=== PATIENT | female | born 1985 | race Caucasian/White ===

== ENCOUNTER 2021-03-06 15:33 | Inpatient (IN) | payer OTHER ==
--- NOTE | 2021-03-06 15:54 | PCM.LDHP ---
L&D History of Present Illness - General Date of Service: 03/06/21 Admit Problem/Dx: Admission Diagnosis/Problem Admission Diagnosis/Problem Source of Information: Patient History Limitations: Reports: No Limitations - History of Present Illness Introduction:: Patient is a 36 y/o at 30 5/7 wks who presents with PPROM. Patient with baby with congenital diaphragmatic hernia, VSD, severe IUGR and chromosomal abnormality. Had been following with [facility] and today at appointment in [place] noted wetness that started at about 0430. Amnisure done and positive. Given plans for palliative care did return to [place] . Doing well currently. Only notes some mild cramping. 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 Para: 0 LMP (Approximate): - Past Surgical History HEENT Surgical History: Reports: Oral Surgery, Tonsillectomy GI Surgical History: Reports: Colonoscopy Social & Family History - Tobacco Use Tobacco Use Status *Q: Never Tobacco User - Alcohol Use Alcohol Use History: No - Recreational Drug Use Recreational Drug Use: No H&P Review of Systems - Review of Systems: Review Of Systems: See Below General: Reports: No Symptoms Pulmonary: Reports: No Symptoms Cardiovascular: Reports: No Symptoms Gastrointestinal: Reports: No Symptoms Genitourinary: Reports: No Symptoms Musculoskeletal: Reports: No Symptoms Skin: Reports: No Symptoms Neurological: Reports: No Symptoms L&D Exam - Exam Exam: See Below - OB Specific Contraction Intensity: Irritability Heart Tones: Present Heart Tones per Min: 125 Presentation: Vertex - Donald Score Donald Score Cervix Position: Midposition Donald Score Consistency: Medium Donald Score Effacement: 31-50% Donald Score Dilation: 1-2 cm Donald Score 's Station: -2 Donald Score Total: 5 - Exam General: Alert, Oriented, Cooperative Lungs: Clear to Auscultation, Normal Respiratory Effort Cardiovascular: Regular Rate, Regular Rhythm GI/Abdominal Exam: Soft, Non-Tender Genitourinary: Normal external exam Extremities: Normal Inspection Skin: Warm, Dry, Intact - Patient Data Result Diagrams: 03/06/21 16:25 - Problem List (1) 30 weeks gestation of SNOMED Code(s): 90003259 ICD Code: Z3A.30 - 30 WEEKS GESTATION OF Status: Acute Current Visit: Yes (2) premature rupture of membranes (PPROM) with unknown onset of labor SNOMED Code(s): 55605297572041917 ICD Code: O42.919 - PRETRM ZACH ROM, UNSP TIME BETW RUPT AND ONST LABR, UNSP TRI Status: Acute Current Visit: Yes (3) Diaphragmatic hernia, , affecting care of mother, antepartum SNOMED Code(s): 081857938, 976649090, 305684534 ICD Code: O35.8XX0 - MATERNAL CARE FOR OTH ABNORMALITY AND DAMAGE, UNSP Status: Acute Current Visit: Yes (4) cardiac anomaly affecting , antepartum SNOMED Code(s): 888597091, 765417436, 174904081 ICD Code: O35.8XX0 - MATERNAL CARE FOR OTH ABNORMALITY AND DAMAGE, UNSP Status: Acute Current Visit: Yes (5) growth restriction SNOMED Code(s): 58343124 ICD Code: [id number] - Status: Acute Current Visit: Yes Problem List Initiated/Reviewed/Updated: Yes Assessment/Plan Comment:: * Labs done * GBS unknown -do not plan antibiotics * Significant anomalies including IUGR. Previously reviewed patient wishes and did again. Will plan for rare doppler assessment of FHR. Reviewed possibility of baby passing in labor. Reviewed cares for baby after delivery. Peds aware of anomalies * Cytotec to start IOL given fair amount of cervical thickness. Pitocin when able * Pain control per patient preference * Anticipate
[2021-03-06] MEDS ORDERED: Famotidine 20 MG Tab PO PRN (15:55)
[2021-03-06] MEDS ORDERED: Ondansetron 4 MG/2 ML SDV IVPUSH PRN (15:55)
[2021-03-06] MEDS ORDERED: Nalbuphine 10 MG/1 ML Vial IVPUSH PRN (15:55)
[2021-03-06] MEDS ORDERED: Sodium Chloride 0.9% 10 ML Syringe FLUSH PRN (15:55)
[2021-03-06] MEDS ORDERED: Oxytocin/Lactated Ringers 10 UNIT/1,000 ML BAG IV SCH (16:00)
[2021-03-06] MEDS ORDERED: Misoprostol 25 MCG (1/4 of 100 MCG) Tab ONE (16:34)
[2021-03-06] MEDS: Misoprostol 25 MCG (1/4 of 100 MCG) Tab VAG PRN ×2 (16:51→21:21)
[2021-03-06] MEDS: Sodium Chloride 0.9% 10 ML Syringe FLUSH SCH (21:32)
[2021-03-07] MEDS: Misoprostol 25 MCG (1/4 of 100 MCG) Tab VAG PRN (01:42)
[2021-03-07] MEDS ORDERED: Oxytocin/Lactated Ringers 10 UNIT/1,000 ML BAG IV SCH (05:45)
[2021-03-07] MEDS: Lactated Ringers 1,000 ML IV SCH ×3 (05:57→17:43)
--- NOTE | 2021-03-07 07:03 | PCM.PNLD ---
Labor Progress Note - VS & Meds Vital Signs: Last Vital Signs Temp 37.1 C 03/06/21 16:00 Pulse 81 03/06/21 16:00 Resp 16 03/06/21 16:00 BP 118/77 03/06/21 16:00 Pulse Ox 98 03/06/21 16:00 Active Medications: Current Medications Acetaminophen (Acetaminophen 325 Mg Tab) 650 mg PO Q4H PRN PRN Reason: Pain (Mild 1-3) and fever Famotidine (Famotidine 20 Mg Tab) 20 mg PO Q12H PRN PRN Reason: Heartburn Oxytocin/Lactated Ringer's (Pitocin In Lr 10 Units/1,000 Ml) 10 unit in 1,000 mls @ 500 mls/hr IV .CONTINUOUS LUC Lactated Ringer's (Ringers, Lactated) 1,000 mls @ 100 mls/hr IV ASDIRECTED LUC Last Admin: 03/07/21 05:57 Dose: 100 mls/hr Documented by: Oxytocin/Lactated Ringer's (Pitocin In Lr 10 Units/1,000 Ml) 10 unit in 1,000 mls @ 12 mls/hr IV TITRATE LUC; Protocol Last Admin: 03/07/21 05:57 Dose: 2 munits/min, 12 mls/hr Documented by: Misoprostol (Misoprostol 25 Mcg (1/4 Of 100 Mcg) Tab) 25 mcg VAG Q4H PRN PRN Reason: cervical ripening Last Admin: 03/07/21 01:42 Dose: 25 mcg Documented by: Nalbuphine HCl (Nalbuphine 10 Mg/1 Ml Vial) 10 mg IVPUSH Q2H PRN PRN Reason: Pain Ondansetron HCl (Ondansetron 4 Mg/2 Ml Sdv) 4 mg IVPUSH Q4H PRN PRN Reason: Nausea/Vomiting Sodium Chloride (Sodium Chloride 0.9% 10 Ml Syringe) 10 ml FLUSH 0900,2100 [facility] Last Admin: 03/06/21 21:32 Dose: Not Given Documented by: Sodium Chloride (Sodium Chloride 0.9% 10 Ml Syringe) 10 ml FLUSH ASDIRECTED PRN PRN Reason: Keep Vein Open Discontinued Medications Misoprostol (Misoprostol 25 Mcg (1/4 Of 100 Mcg) Tab) Confirm Administered Dose 25 mcg .ROUTE .STK-MED ONE Stop: 03/06/21 16:35 Last Admin: 03/06/21 16:39 Dose: Not Given Documented by: - Uterine Contractions Uterine Monitoring Mode: External [place] Contraction Intensity: Mild Uterine Resting Tone: Soft - Monitoring Monitor Mode: Doppler/Auscultation Heart Rate (FHR) Baseline: 125 - Vaginal Exam Dilation (cm): 1-2 - Labor Progress (Free Text) Labor Progress: Doing well. Received 3 doses of Cytotec. Started pitocin at about 0500. Doing well. Cook balloon just placed. Continue to increase per protocol
--- NOTE | 2021-03-07 08:25 | PCM.PREANE ---
Preanesthetic Assessment - Procedure Proposed Procedure: Labor epidural - Anesthesia/Transfusion/Family Hx Anesthesia History: Prior Anesthesia Without Reaction Family History of Anesthesia Reaction: No Transfusion History: No Prior Transfusion(s) Intubation History: Unknown - Review of Systems General: No Symptoms Pulmonary: No Symptoms Cardiovascular: No Symptoms Gastrointestinal: Abdominal Pain (uterine contractions), Nausea, Vomiting Neurological: Headache - Physical Assessment NPO Status Date: 03/06/21 NPO Status Time: 20:00 Vital Signs: Last Vital Signs Temp 98.8 F 03/06/21 16:00 Pulse 81 03/06/21 16:00 Resp 16 03/06/21 16:00 BP 118/77 03/06/21 16:00 Pulse Ox 98 03/06/21 16:00 Height: 1.73 m Weight: 109.452 kg ASA Class: 2 Mental Status: Alert & Oriented x3 Airway Class: Mallampati = 2 Dentition: Reports: Caries Thyro-Mental Finger Breadths: 3 Mouth Opening Finger Breadths: 3 ROM/Head Extension: Full Lungs: Clear to Auscultation, Normal Respiratory Effort Cardiovascular: Regular Rate, Regular Rhythm - Lab Values: Laboratory Last Values WBC 11.56 K/mm3 (3.98-10.04) H 03/06/21 16:25 RBC 4.09 M/mm3 (3.98-5.22) 03/06/21 16:25 Hgb 11.8 gm/dl (11.2-15.7) 03/06/21 16:25 Hct 35.3 % (34.1-44.9) 03/06/21 16:25 MCV 86.3 fl (79.4-94.8) 03/06/21 16:25 MCH 28.9 pg (25.6-32.2) 03/06/21 16:25 MCHC 33.4 g/dl (32.2-35.5) 03/06/21 16:25 RDW Std Deviation 40.8 fL (36.4-46.3) 03/06/21 16:25 Plt Count 257 K/mm3 (182-369) 03/06/21 16:25 MPV 10.2 fl (9.4-12.3) 03/06/21 16:25 RPR Non-reactive (NONREACTIVE) 03/06/21 16:25 SARS-CoV-2 RNA (ASHKAN) Negative (NEGATIVE) 03/06/21 14:08 Blood Type A POSITIVE 03/06/21 16:25 Gel Antibody Screen Negative 03/06/21 16:25 - Allergies Allergies/Adverse Reactions: Allergies Allergy/AdvReac Type Severity Reaction Status Date / Time No Known Allergies Allergy Verified 03/06/21 15:50 - Acknowledgements Anesthesia Type Planned: Epidural Pt an Appropriate Candidate for the Planned Anesthesia: Yes Alternatives and Risks of Anesthesia Discussed w Pt/Guardian: Yes Pt/Guardian Understands and Agrees with Anesthesia Plan: Yes PreAnesthesia Questionnaire HEENT History: Reports: Hard of Hearing Cardiovascular History: Reports: None Respiratory History: Reports: None Gastrointestinal History: Reports: GERD, Irritable Bowel Syndrome Other Genitourinary History: BRCA gene 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 OB/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 History: hx of abnormal pap Musculoskeletal History: Reports: None Neurological History: Reports: Migraines Psychiatric History: Reports: Anxiety Endocrine/Metabolic History: Reports: Obesity/BMI 30+ Hematologic History: Reports: None Immunologic History: Reports: None Oncologic (Cancer) History: Reports: None Dermatologic History: Reports: None - Infectious Disease History Infectious Disease History: Reports: Chicken Pox - Past Surgical History HEENT Surgical History: Reports: Oral Surgery, Tonsillectomy Other HEENT Surgeries/Procedures: [place] teeth GI Surgical History: Reports: Colonoscopy, EGD - SUBSTANCE USE Tobacco Use Status *Q: Never Tobacco User Tobacco Use Within Last Twelve Months: No Second Hand Smoke Exposure: No Days Per Week of Alcohol Use: 0 Number of Drinks Per Day: 0 Total Drinks Per Week: 0 Recreational Drug Use History: No - HOME MEDS Home Medications: Home Meds Calcium Carbonate [Tums] 1,000 mg PO TID 03/06/21 [History] Magnesium Oxide [Mag-Oxide] 400 mg PO DAILY 03/06/21 [History] Pnv No.95/Ferrous Fum/Folic AC [ Vitamin Tablet] 1 tab PO DAILY 03/06/21 [History] - CURRENT (IN HOUSE) MEDS Current Meds: Current Medications Acetaminophen (Acetaminophen 325 Mg Tab) 650 mg PO Q4H PRN PRN Reason: Pain (Mild 1-3) and fever Famotidine (Famotidine 20 Mg Tab) 20 mg PO Q12H PRN PRN Reason: Heartburn Oxytocin/Lactated Ringer's (Pitocin In Lr 10 Units/1,000 Ml) 10 unit in 1,000 mls @ 500 mls/hr IV .CONTINUOUS LUC Lactated Ringer's (Ringers, Lactated) 1,000 mls @ 100 mls/hr IV ASDIRECTED LUC Last Admin: 03/07/21 05:57 Dose: 100 mls/hr Documented by: Oxytocin/Lactated Ringer's (Pitocin In Lr 10 Units/1,000 Ml) 10 unit in 1,000 mls @ 12 mls/hr IV TITRATE LUC; Protocol Last Titration: 03/07/21 07:00 Dose: 4 munits/min, 24 mls/hr Documented by: Misoprostol (Misoprostol 25 Mcg (1/4 Of 100 Mcg) Tab) 25 mcg VAG Q4H PRN PRN Reason: cervical ripening Last Admin: 03/07/21 01:42 Dose: 25 mcg Documented by: Nalbuphine HCl (Nalbuphine 10 Mg/1 Ml Vial) 10 mg IVPUSH Q2H PRN PRN Reason: Pain Ondansetron HCl (Ondansetron 4 Mg/2 Ml Sdv) 4 mg IVPUSH Q4H PRN PRN Reason: Nausea/Vomiting Sodium Chloride (Sodium Chloride 0.9% 10 Ml Syringe) 10 ml FLUSH 0900,2100 [facility] Last Admin: 03/06/21 21:32 Dose: Not Given Documented by: Sodium Chloride (Sodium Chloride 0.9% 10 Ml Syringe) 10 ml FLUSH ASDIRECTED PRN PRN Reason: Keep Vein Open Discontinued Medications Misoprostol (Misoprostol 25 Mcg (1/4 Of 100 Mcg) Tab) Confirm Administered Dose 25 mcg .ROUTE .STK-MED ONE Stop: 03/06/21 16:35 Last Admin: 03/06/21 16:39 Dose: Not Given Documented by:
[2021-03-07] MEDS ORDERED: diphenhydrAMINE 50 MG/ML SDV IVPUSH PRN (08:33)
[2021-03-07] MEDS ORDERED: ePHEDrine 50 MG/ML SDV IVPUSH PRN (08:33)
[2021-03-07] MEDS: fentaNYL 100 MCG/2 ML SDV EPIDUR PRN (08:41)
[2021-03-07] MEDS: Bupivacaine/fentaNYL/NS 100 ML Bag EPIDUR PRN ×2 (08:43→18:04)
[2021-03-07] MEDS: Acetaminophen 325 MG Tab PO PRN ×2 (13:17→20:10)
[2021-03-07] MEDS ORDERED: Oxytocin/Lactated Ringers 20 UNIT/1,000 ML BAG IV SCH ×2 (16:45→17:15)
--- NOTE | 2021-03-07 17:03 | PCM.PNLD ---
Labor Progress Note - VS & Meds Vital Signs: Last Vital Signs Temp 37.1 C 03/06/21 16:00 Pulse 81 03/06/21 16:00 Resp 16 03/06/21 16:00 BP 118/77 03/06/21 16:00 Pulse Ox 98 03/06/21 16:00 Active Medications: Current Medications Acetaminophen (Acetaminophen 325 Mg Tab) 650 mg PO Q4H PRN PRN Reason: Pain (Mild 1-3) and fever Last Admin: 03/07/21 13:17 Dose: 650 mg Documented by: Diphenhydramine HCl (Diphenhydramine 50 Mg/Ml Sdv) 25 mg IVPUSH Q6H PRN PRN Reason: pruritis Ephedrine Sulfate (Ephedrine 50 Mg/Ml Sdv) 5 mg IVPUSH ASDIRECTED PRN PRN Reason: Hypotension Famotidine (Famotidine 20 Mg Tab) 20 mg PO Q12H PRN PRN Reason: Heartburn Last Admin: 03/07/21 15:11 Dose: 20 mg Documented by: Fentanyl (Fentanyl 100 Mcg/2 Ml Sdv) 100 mcg EPIDUR Q3H PRN PRN Reason: Pain Last Admin: 03/07/21 08:41 Dose: 100 mcg Documented by: Fentanyl/Bupivacaine HCl (Bupivacaine/Fentanyl/Ns 100 Ml Bag) 100 ml EPIDUR ASDIRECTED PRN PRN Reason: Pain Last Admin: 03/07/21 08:43 Dose: 100 ml Documented by: Oxytocin/Lactated Ringer's (Pitocin In Lr 10 Units/1,000 Ml) 10 unit in 1,000 mls @ 500 mls/hr IV .CONTINUOUS LUC Lactated Ringer's (Ringers, Lactated) 1,000 mls @ 100 mls/hr IV ASDIRECTED LUC Last Admin: 03/07/21 08:29 Dose: 100 mls/hr Documented by: Oxytocin/Lactated Ringer's (Pitocin In Lr 10 Units/1,000 Ml) 10 unit in 1,000 mls @ 12 mls/hr IV TITRATE LUC; Protocol Last Titration: 03/07/21 09:49 Dose: 2 munits/min, 12 mls/hr Documented by: Misoprostol (Misoprostol 25 Mcg (1/4 Of 100 Mcg) Tab) 25 mcg VAG Q4H PRN PRN Reason: cervical ripening Last Admin: 03/07/21 01:42 Dose: 25 mcg Documented by: Nalbuphine HCl (Nalbuphine 10 Mg/1 Ml Vial) 10 mg IVPUSH Q2H PRN PRN Reason: Pain Ondansetron HCl (Ondansetron 4 Mg/2 Ml Sdv) 4 mg IVPUSH Q4H PRN PRN Reason: Nausea/Vomiting Last Admin: 03/07/21 08:21 Dose: 4 mg Documented by: Sodium Chloride (Sodium Chloride 0.9% 10 Ml Syringe) 10 ml FLUSH 0900,2100 [facility] Last Admin: 03/06/21 21:32 Dose: Not Given Documented by: Sodium Chloride (Sodium Chloride 0.9% 10 Ml Syringe) 10 ml FLUSH ASDIRECTED PRN PRN Reason: Keep Vein Open Discontinued Medications Oxytocin 20 unit/ Lactated (Ringer's) 1,002 mls @ 6.012 mls/hr IV TITRATE LUC; Protocol Misoprostol (Misoprostol 25 Mcg (1/4 Of 100 Mcg) Tab) Confirm Administered Dose 25 mcg .ROUTE .STK-MED ONE Stop: 03/06/21 16:35 Last Admin: 03/06/21 16:39 Dose: Not Given Documented by: - Uterine Contractions Uterine Monitoring Mode: External [place] Contraction Intensity: Mild to Moderate Uterine Resting Tone: Soft - Monitoring Monitor Mode: External Ultrasound Heart Rate (FHR) Baseline: 125 - Vaginal Exam Dilation (cm): 4 Effacement (Percent): 70 Station: -2 Cervical Position: Midposition - Labor Progress (Free Text) Labor Progress: Pitocin currently at 20. Bulb able to be successfully extracted. Exam shows small forebag. Ruptured with a small amount of blood tinged fluid. Continue to increase pitocin to 30. FHR still present.
--- NOTE | 2021-03-07 17:04 | PCM.PNLD ---
Labor Progress Note - VS & Meds Vital Signs: Last Vital Signs Temp 37.1 C 03/06/21 16:00 Pulse 81 03/06/21 16:00 Resp 16 03/06/21 16:00 BP 118/77 03/06/21 16:00 Pulse Ox 98 03/06/21 16:00 Active Medications: Current Medications Acetaminophen (Acetaminophen 325 Mg Tab) 650 mg PO Q4H PRN PRN Reason: Pain (Mild 1-3) and fever Last Admin: 03/07/21 13:17 Dose: 650 mg Documented by: Diphenhydramine HCl (Diphenhydramine 50 Mg/Ml Sdv) 25 mg IVPUSH Q6H PRN PRN Reason: pruritis Ephedrine Sulfate (Ephedrine 50 Mg/Ml Sdv) 5 mg IVPUSH ASDIRECTED PRN PRN Reason: Hypotension Famotidine (Famotidine 20 Mg Tab) 20 mg PO Q12H PRN PRN Reason: Heartburn Last Admin: 03/07/21 15:11 Dose: 20 mg Documented by: Fentanyl (Fentanyl 100 Mcg/2 Ml Sdv) 100 mcg EPIDUR Q3H PRN PRN Reason: Pain Last Admin: 03/07/21 08:41 Dose: 100 mcg Documented by: Fentanyl/Bupivacaine HCl (Bupivacaine/Fentanyl/Ns 100 Ml Bag) 100 ml EPIDUR ASDIRECTED PRN PRN Reason: Pain Last Admin: 03/07/21 08:43 Dose: 100 ml Documented by: Oxytocin/Lactated Ringer's (Pitocin In Lr 10 Units/1,000 Ml) 10 unit in 1,000 mls @ 500 mls/hr IV .CONTINUOUS LUC Lactated Ringer's (Ringers, Lactated) 1,000 mls @ 100 mls/hr IV ASDIRECTED LUC Last Admin: 03/07/21 08:29 Dose: 100 mls/hr Documented by: Oxytocin/Lactated Ringer's (Pitocin In Lr 10 Units/1,000 Ml) 10 unit in 1,000 mls @ 12 mls/hr IV TITRATE LUC; Protocol Last Titration: 03/07/21 09:49 Dose: 2 munits/min, 12 mls/hr Documented by: Misoprostol (Misoprostol 25 Mcg (1/4 Of 100 Mcg) Tab) 25 mcg VAG Q4H PRN PRN Reason: cervical ripening Last Admin: 03/07/21 01:42 Dose: 25 mcg Documented by: Nalbuphine HCl (Nalbuphine 10 Mg/1 Ml Vial) 10 mg IVPUSH Q2H PRN PRN Reason: Pain Ondansetron HCl (Ondansetron 4 Mg/2 Ml Sdv) 4 mg IVPUSH Q4H PRN PRN Reason: Nausea/Vomiting Last Admin: 03/07/21 08:21 Dose: 4 mg Documented by: Sodium Chloride (Sodium Chloride 0.9% 10 Ml Syringe) 10 ml FLUSH 0900,2100 [facility] Last Admin: 03/06/21 21:32 Dose: Not Given Documented by: Sodium Chloride (Sodium Chloride 0.9% 10 Ml Syringe) 10 ml FLUSH ASDIRECTED PRN PRN Reason: Keep Vein Open Discontinued Medications Oxytocin 20 unit/ Lactated (Ringer's) 1,002 mls @ 6.012 mls/hr IV TITRATE LUC; Protocol Misoprostol (Misoprostol 25 Mcg (1/4 Of 100 Mcg) Tab) Confirm Administered Dose 25 mcg .ROUTE .STK-MED ONE Stop: 03/06/21 16:35 Last Admin: 03/06/21 16:39 Dose: Not Given Documented by: - Uterine Contractions Uterine Monitoring Mode: External [place] Contraction Intensity: Mild Uterine Resting Tone: Soft - Monitoring Monitor Mode: External Ultrasound Heart Rate (FHR) Baseline: 85 - Labor Progress (Free Text) Labor Progress: Doing well. Comfortable now that epidural in place. Traction placed on bulb and not able to remove. Continue to increase pitocin per protocol. FHR done and thought to be in 80's.
--- NOTE | 2021-03-07 20:13 | PCM.PNLD ---
Labor Progress Note - VS & Meds Vital Signs: Last Vital Signs Temp 37.1 C 03/06/21 16:00 Pulse 81 03/06/21 16:00 Resp 16 03/06/21 16:00 BP 118/77 03/06/21 16:00 Pulse Ox 98 03/06/21 16:00 Active Medications: Current Medications Acetaminophen (Acetaminophen 325 Mg Tab) 650 mg PO Q4H PRN PRN Reason: Pain (Mild 1-3) and fever Last Admin: 03/07/21 13:17 Dose: 650 mg Documented by: Diphenhydramine HCl (Diphenhydramine 50 Mg/Ml Sdv) 25 mg IVPUSH Q6H PRN PRN Reason: pruritis Ephedrine Sulfate (Ephedrine 50 Mg/Ml Sdv) 5 mg IVPUSH ASDIRECTED PRN PRN Reason: Hypotension Famotidine (Famotidine 20 Mg Tab) 20 mg PO Q12H PRN PRN Reason: Heartburn Last Admin: 03/07/21 15:11 Dose: 20 mg Documented by: Fentanyl (Fentanyl 100 Mcg/2 Ml Sdv) 100 mcg EPIDUR Q3H PRN PRN Reason: Pain Last Admin: 03/07/21 08:41 Dose: 100 mcg Documented by: Fentanyl/Bupivacaine HCl (Bupivacaine/Fentanyl/Ns 100 Ml Bag) 100 ml EPIDUR ASDIRECTED PRN PRN Reason: Pain Last Admin: 03/07/21 18:04 Dose: 100 ml Documented by: Oxytocin/Lactated Ringer's (Pitocin In Lr 10 Units/1,000 Ml) 10 unit in 1,000 mls @ 500 mls/hr IV .CONTINUOUS LUC Lactated Ringer's (Ringers, Lactated) 1,000 mls @ 100 mls/hr IV ASDIRECTED LUC Last Admin: 03/07/21 17:43 Dose: 100 mls/hr Documented by: Oxytocin/Lactated Ringer's (Pitocin In Lr 10 Units/1,000 Ml) 10 unit in 1,000 mls @ 12 mls/hr IV TITRATE LUC; Protocol Last Titration: 03/07/21 15:30 Dose: 20 munits/min, 120 mls/hr Documented by: Oxytocin/Lactated Ringer's (Pitocin In Lr 20 Units/1,000 Ml) 20 unit in 1,000 mls @ 60 mls/hr IV TITRATE LUC; Protocol Last Admin: 03/07/21 17:40 Dose: 60 mls/hr Documented by: Nalbuphine HCl (Nalbuphine 10 Mg/1 Ml Vial) 10 mg IVPUSH Q2H PRN PRN Reason: Pain Ondansetron HCl (Ondansetron 4 Mg/2 Ml Sdv) 4 mg IVPUSH Q4H PRN PRN Reason: Nausea/Vomiting Last Admin: 03/07/21 08:21 Dose: 4 mg Documented by: Sodium Chloride (Sodium Chloride 0.9% 10 Ml Syringe) 10 ml FLUSH 0900,2100 L[facility] Last Admin: 03/06/21 21:32 Dose: Not Given Documented by: Sodium Chloride (Sodium Chloride 0.9% 10 Ml Syringe) 10 ml FLUSH ASDIRECTED PRN PRN Reason: Keep Vein Open Discontinued Medications Oxytocin 20 unit/ Lactated (Ringer's) 1,002 mls @ 6.012 mls/hr IV TITRATE LUC; Protocol Oxytocin/Lactated Ringer's (Pitocin In Lr 20 Units/1,000 Ml) 20 unit in 1,000 mls @ 60 mls/hr IV TITRATE LUC; Protocol Misoprostol (Misoprostol 25 Mcg (1/4 Of 100 Mcg) Tab) 25 mcg VAG Q4H PRN PRN Reason: cervical ripening Last Admin: 03/07/21 01:42 Dose: 25 mcg Documented by: Misoprostol (Misoprostol 25 Mcg (1/4 Of 100 Mcg) Tab) Confirm Administered Dose 25 mcg .ROUTE .STK-MED ONE Stop: 03/06/21 16:35 Last Admin: 03/06/21 16:39 Dose: Not Given Documented by: - Uterine Contractions Uterine Monitoring Mode: External [place] Contraction Intensity: Mild to Moderate Uterine Resting Tone: Soft - Monitoring Monitor Mode: External Ultrasound Heart Rate (FHR) Baseline: 190 - Vaginal Exam Dilation (cm): 4-5 Effacement (Percent): 70 Station: -1 Cervical Position: Anterior - Labor Progress (Free Text) Labor Progress: Pitocin at 24. Just had another large forebag rupture of clear fluid. IUPC placed. Will plan to increase to 30 and leave at that for several hours and then recheck. If no change discussed wash out and restart of pitocin. She agrees.
[2021-03-07] MEDS: Sodium Chloride 0.9% 10 ML Syringe FLUSH SCH ×2 (20:33→21:46)
[2021-03-08] MEDS: fentaNYL 100 MCG/2 ML SDV EPIDUR PRN (02:14)
--- NOTE | 2021-03-08 03:35 | PCM.DEL ---
L & D Note - General Info Date of Service: 03/08/21 - Delivery Note Labor: Augmented by Oxytocin Cervical Ripening Method: Balloon Device, Misoprostil Delivery Outcome: Livebirth Infant Delivery Method: Spontaneous Vaginal Delivery-Single Delivery Mode: Spontaneous Presentation: Vertex Nuchal Cord: None Anesthesia Type: Epidural Amniotic Fluid Description: Clear Episiotomy Type: None Laceration: None Placenta: Intact, Spontaneous Cord: 3 Vessels Estimated Blood Loss: 50 Resuscitation Needed: No Delivery Comments (Free Text/Narrative):: Patient found to be complete. Delivered with maternal pushing effort from a vertex presentation. Baby girl placed on mom's chest. RN able to hear FHR <100. Cord clamped and dad able to cut cord. Cord blood obtained. Placenta allowed time to separate and expelled intact. Inspection of perineum with no lacerations. Allowed family time to hold daughter. Next check of FHR at 0339 showed it to be absent. Time of noted. - General Info Date of Service: 03/08/21 - Patient Data Vitals - Most Recent: Last Vital Signs Temp 37.1 C 03/06/21 16:00 Pulse 81 03/06/21 16:00 Resp 16 03/06/21 16:00 BP 118/77 03/06/21 16:00 Pulse Ox 98 03/06/21 16:00 Weight - Most Recent: 109.452 kg I&O - Last 24 Hours: Intake & Output 03/07/21 03/07/21 03/08/21 14:59 22:59 06:59 Intake Total 1000 Output Total 1300 1500 Balance 1000 -1300 -1500 - Exam Urinary Catheter Total Time: 0Days 0Hours - Problem List & Annotations (1) 30 weeks gestation of SNOMED Code(s): 35323741 Code(s): Z3A.30 - 30 WEEKS GESTATION OF Status: Acute Current Visit: Yes (2) premature rupture of membranes (PPROM) with unknown onset of labor SNOMED Code(s): 45754140916262072 Code(s): O42.919 - PRETRM ZACH ROM, UNSP TIME BETW RUPT AND ONST LABR, UNSP TRI Status: Acute Current Visit: Yes (3) Diaphragmatic hernia, , affecting care of mother, antepartum SNOMED Code(s): 518176015, 332518666, 467254756 Code(s): O35.8XX0 - MATERNAL CARE FOR OTH ABNORMALITY AND DAMAGE, UNSP Status: Acute Current Visit: Yes (4) cardiac anomaly affecting , antepartum SNOMED Code(s): 798247039, 426622453, 240207433 Code(s): O35.8XX0 - MATERNAL CARE FOR OTH ABNORMALITY AND DAMAGE, UNSP Status: Acute Current Visit: Yes (5) growth restriction SNOMED Code(s): 42371415 Code(s): PTF6400 - Status: Acute Current Visit: Yes (6) Vaginal delivery SNOMED Code(s): 761546064 Code(s): O80 - ENCOUNTER FOR FULL-TERM UNCOMPLICATED DELIVERY Status: Acute Current Visit: Yes - Problem List Review Problem List Initiated/Reviewed/Updated: Yes - My Orders Last 24 Hours: My Active Orders 03/07/21 05:45 Oxytocin/Lactated Ringers [Pitocin in LR 10 Units/1,000 ML] 10 unit in 1,000 ml IV TITRATE 03/07/21 12:24 Urinary Catheter Assessment [RC] ASDIRECTED 03/07/21 12:25 Pump Management, Intrathecal [RC] ASDIRECTED 03/07/21 17:13 Communication Order [RC] ASDIRECTED 03/07/21 17:15 Oxytocin/Lactated Ringers [Pitocin in LR 20 Units/1,000 ML] 20 unit in 1,000 ml IV TITRATE - Assessment Assessment:: 0 - Plan Plan:: * Routine cares * Discharge home either today or tomorrow pending patient and family wishes
[2021-03-08] MEDS ORDERED: Benzocaine/Menthol 20%-0.5% Spray 78 GM Cannister TOP PRN (05:09)
[2021-03-08] MEDS ORDERED: Docusate Sodium 100 MG Cap PO PRN (05:09)
[2021-03-08] MEDS ORDERED: Witch Hazel Medicated Pads 40/Jar TOP PRN (05:09)
[2021-03-08] MEDS ORDERED: Ibuprofen 600 MG Tab PO PRN (05:09)
[2021-03-08] MEDS ORDERED: Acetaminophen 325 MG Tab PO PRN (05:09)
--- NOTE | 2021-03-08 07:56 | PCM.PNPP ---
- General Info Date of Service: 03/08/21 Functional Status: Reports: Pain Controlled, Tolerating Diet, Ambulating - Review of Systems General: Reports: No Symptoms Pulmonary: Reports: No Symptoms Cardiovascular: Reports: No Symptoms Gastrointestinal: Reports: No Symptoms Genitourinary: Reports: No Symptoms - General Info Date of Service: 03/08/21 - Patient Data Vital Signs - Most Recent: Last Vital Signs Temp 37.1 C 03/06/21 16:00 Pulse 81 03/06/21 16:00 Resp 16 03/06/21 16:00 BP 118/77 03/06/21 16:00 Pulse Ox 98 03/06/21 16:00 Weight - Most Recent: 109.452 kg I&O - Last 24 Hours: Intake & Output 03/07/21 03/08/21 03/08/21 22:59 06:59 14:59 Output Total 1300 1500 Balance -1300 -1500 Med Orders - Current: Current Medications Acetaminophen (Acetaminophen 325 Mg Tab) 650 mg PO Q4H PRN PRN Reason: mild pain or fever Last Admin: 03/08/21 05:21 Dose: 650 mg Documented by: Benzocaine/Menthol (Benzocaine/Menthol 20%-0.5% [place] 78 Gm Cannister) 0 gm TOP ASDIRECTED PRN PRN Reason: Perineal Comfort Measure Docusate Sodium (Docusate Sodium 100 Mg Cap) 100 mg PO BID PRN PRN Reason: Constipation Ibuprofen (Ibuprofen 600 Mg Tab) 600 mg PO Q6H PRN PRN Reason: Mild pain or fever Witch Caro (Witch Caro Medicated Pads 40/Jar) 1 pad TOP ASDIRECTED PRN PRN Reason: Perineal Comfort Measure Discontinued Medications Acetaminophen (Acetaminophen 325 Mg Tab) 650 mg PO Q4H PRN PRN Reason: Pain (Mild 1-3) and fever Last Admin: 03/07/21 20:10 Dose: 650 mg Documented by: Diphenhydramine HCl (Diphenhydramine 50 Mg/Ml Sdv) 25 mg IVPUSH Q6H PRN PRN Reason: pruritis Ephedrine Sulfate (Ephedrine 50 Mg/Ml Sdv) 5 mg IVPUSH ASDIRECTED PRN PRN Reason: Hypotension Famotidine (Famotidine 20 Mg Tab) 20 mg PO Q12H PRN PRN Reason: Heartburn Last Admin: 03/07/21 15:11 Dose: 20 mg Documented by: Fentanyl (Fentanyl 100 Mcg/2 Ml Sdv) 100 mcg EPIDUR Q3H PRN PRN Reason: Pain Last Admin: 03/08/21 02:14 Dose: 100 mcg Documented by: Fentanyl/Bupivacaine HCl (Bupivacaine/Fentanyl/Ns 100 Ml Bag) 100 ml EPIDUR ASDIRECTED PRN PRN Reason: Pain Last Admin: 03/07/21 18:04 Dose: 100 ml Documented by: Oxytocin/Lactated Ringer's (Pitocin In Lr 10 Units/1,000 Ml) 10 unit in 1,000 mls @ 500 mls/hr IV .CONTINUOUS LUC Last Admin: 03/08/21 04:12 Dose: 500 mls/hr Documented by: Lactated Ringer's (Ringers, Lactated) 1,000 mls @ 100 mls/hr IV ASDIRECTED LUC Last Admin: 03/07/21 17:43 Dose: 100 mls/hr Documented by: Oxytocin/Lactated Ringer's (Pitocin In Lr 10 Units/1,000 Ml) 10 unit in 1,000 mls @ 12 mls/hr IV TITRATE LUC; Protocol Last Titration: 03/07/21 15:30 Dose: 20 munits/min, 120 mls/hr Documented by: Oxytocin 20 unit/ Lactated (Ringer's) 1,002 mls @ 6.012 mls/hr IV TITRATE LUC; Protocol Oxytocin/Lactated Ringer's (Pitocin In Lr 20 Units/1,000 Ml) 20 unit in 1,000 mls @ 60 mls/hr IV TITRATE LUC; Protocol Last Admin: 03/07/21 17:40 Dose: 60 mls/hr Documented by: Oxytocin/Lactated Ringer's (Pitocin In Lr 20 Units/1,000 Ml) 20 unit in 1,000 mls @ 60 mls/hr IV TITRATE LUC; Protocol Misoprostol (Misoprostol 25 Mcg (1/4 Of 100 Mcg) Tab) 25 mcg VAG Q4H PRN PRN Reason: cervical ripening Last Admin: 03/07/21 01:42 Dose: 25 mcg Documented by: Misoprostol (Misoprostol 25 Mcg (1/4 Of 100 Mcg) Tab) Confirm Administered Dose 25 mcg .ROUTE .[facility]-MED ONE Stop: 03/06/21 16:35 Last Admin: 03/06/21 16:39 Dose: Not Given Documented by: Nalbuphine HCl (Nalbuphine 10 Mg/1 Ml Vial) 10 mg IVPUSH Q2H PRN PRN Reason: Pain Ondansetron HCl (Ondansetron 4 Mg/2 Ml Sdv) 4 mg IVPUSH Q4H PRN PRN Reason: Nausea/Vomiting Last Admin: 03/07/21 08:21 Dose: 4 mg Documented by: Sodium Chloride (Sodium Chloride 0.9% 10 Ml Syringe) 10 ml FLUSH 0900,2100 LUC Last Admin: 03/07/21 21:46 Dose: Not Given Documented by: Sodium Chloride (Sodium Chloride 0.9% 10 Ml Syringe) 10 ml FLUSH ASDIRECTED PRN PRN Reason: Keep Vein Open - Interaction Support Person: - Recovery Exam Fundal Tone: Firm Fundal Placement: Midline Episiotomy/Laceration: None Bladder Status: Voiding Urinary Elimination: Voided - Exam General: Alert, Oriented, Cooperative GI/Abdominal Exam: Soft, Non-Tender - Problem List & Annotations (1) 30 weeks gestation of SNOMED Code(s): 40403239 Code(s): Z3A.30 - 30 WEEKS GESTATION OF Status: Acute Current Visit: Yes (2) premature rupture of membranes (PPROM) with unknown onset of labor SNOMED Code(s): 65009628377141433 Code(s): O42.919 - PRETRM ZACH ROM, UNSP TIME BETW RUPT AND ONST LABR, UNSP TRI Status: Acute Current Visit: Yes (3) Diaphragmatic hernia, , affecting care of mother, antepartum SNOMED Code(s): 055747097, 170890438, 120178086 Code(s): O35.8XX0 - MATERNAL CARE FOR OTH ABNORMALITY AND DAMAGE, UNSP Status: Acute Current Visit: Yes (4) cardiac anomaly affecting , antepartum SNOMED Code(s): 836705480, 032854183, 519268078 Code(s): O35.8XX0 - MATERNAL CARE FOR OTH ABNORMALITY AND DAMAGE, UNSP Status: Acute Current Visit: Yes (5) growth restriction SNOMED Code(s): 81926240 Code(s): XNU4037 - Status: Acute Current Visit: Yes (6) Vaginal delivery SNOMED Code(s): 050362222 Code(s): O80 - ENCOUNTER FOR FULL-TERM UNCOMPLICATED DELIVERY Status: Acute Current Visit: Yes - Problem List Review Problem List Initiated/Reviewed/Updated: Yes - My Orders Last 24 Hours: My Active Orders 03/08/21 05:09 Acetaminophen [TylenoL] 650 mg PO Q4H PRN Benzocaine/Menthol [Dermoplast Pain Relief 20%-0.5% [place]] See Dose Instructions TOP ASDIRECTED PRN Docusate Sodium [Colace] 100 mg PO BID PRN Ibuprofen [Motrin] 600 mg PO Q6H PRN witch Caro [Tucks] 1 pad TOP ASDIRECTED PRN Heat Therapy [OM.PC] PRN 03/08/21 05:09 Activity as Tolerated [RC] PER UNIT ROUTINE Up ad Cristina [RC] ASDIRECTED Vital Signs [RC] ASDIRECTED Assess Lochia [WOMSER] Per Unit Routine Assess Uterine Involution [WOMSER] Per Unit Routine Breast Pump [WOMSER] Per Unit Routine Perineal Care [OM.PC] Per Unit Routine Peripheral IV Discontinue [OM.PC] Routine Sitz Bath [OM.PC] Per Unit Routine 03/08/21 Breakfast Regular Diet [DIET] 03/09/21 05:09 Heat Therapy [OM.PC] PRN - Assessment Assessment:: PPD#0 - Plan Plan:: * Routine cares * Making arrangements. Likely discharge later today
--- NOTE | 2021-03-08 08:22 | PCM48HPAN ---
Post Anesthesia Note - EVALUATION WITHIN 48HRS OF ANESTHETIC Vital Signs in Normal Range: Yes Patient Participated in Evaluation: Yes Respiratory Function Stable: Yes Airway Patent: Yes Cardiovascular Function Stable: Yes Hydration Status Stable: Yes Pain Control Satisfactory: Yes Nausea and Vomiting Control Satisfactory: Yes Mental Status Recovered: Yes Vital Signs: Last Vital Signs Temp 37.1 C 03/06/21 16:00 Pulse 81 03/06/21 16:00 Resp 16 03/06/21 16:00 BP 118/77 03/06/21 16:00 Pulse Ox 98 03/06/21 16:00 - COMMENTS/OBSERVATIONS Free Text/Narrative:: Pt has some numbness to right leg that is slowly brenda off.
--- NOTE | 2021-03-08 13:27 | PCM.DCSUM1 ---
Discharge Summary - Discharge Data Discharge Date: 03/08/21 Discharge Disposition: Home, Self-Care 01 Condition: Good - Referral to Home Health Primary Care Physician: Darling Rangel MD - Discharge Diagnosis/Problem(s) (1) 30 weeks gestation of SNOMED Code(s): 42428757 ICD Code: Z3A.30 - 30 WEEKS GESTATION OF Status: Acute Current Visit: Yes (2) premature rupture of membranes (PPROM) with unknown onset of labor SNOMED Code(s): 99335280298735180 ICD Code: O42.919 - PRETRM ZACH ROM, UNSP TIME BETW RUPT AND ONST LABR, UNSP TRI Status: Acute Current Visit: Yes (3) Diaphragmatic hernia, , affecting care of mother, antepartum SNOMED Code(s): 970196490, 497409547, 071113683 ICD Code: O35.8XX0 - MATERNAL CARE FOR OTH ABNORMALITY AND DAMAGE, UNSP Status: Acute Current Visit: Yes Qualifiers: Fetus number: single or unspecified fetus Qualified Code(s): O35.8XX0 - Maternal care for other (suspected) abnormality and damage, not applicable or unspecified (4) cardiac anomaly affecting , antepartum SNOMED Code(s): 004971695, 142589091, 791842404 ICD Code: O35.8XX0 - MATERNAL CARE FOR OTH ABNORMALITY AND DAMAGE, UNSP Status: Acute Current Visit: Yes Qualifiers: Fetus number: single or unspecified fetus Qualified Code(s): O35.8XX0 - Maternal care for other (suspected) abnormality and damage, not applicable or unspecified (5) growth restriction SNOMED Code(s): 69045791 ICD Code: NDP3238 - Status: Acute Current Visit: Yes (6) Vaginal delivery SNOMED Code(s): 499897449 ICD Code: O80 - ENCOUNTER FOR FULL-TERM UNCOMPLICATED DELIVERY Status: Acute Current Visit: Yes - Patient Summary/Data Complications: None Consults: None Recommended Follow-up Testing/Procedures: Follow up in 3 weeks Hospital Course: 36 y/o at 30 5/7 wks who presented for management of PPROM. Baby with known CDH, VSD, IUGR, and chromosomal abnormality. Was started on cytotec initially for ripening. Then had cook balloon placed and pitocin started. Progressed slowly until had rupture of large forebag. Then made more consistent progress to complete dilation. Underwent vaginal delivery. Baby lived for about 20 minutes after delivery. patient did well and was discharged home on PPD#0 - Patient Instructions Diet: Regular Diet as Tolerated Activity: As Tolerated Activity, Other: Pelvic rest for 6 weeks Driving: May Drive Today Showering/Bathing: May Shower Showering/Bathing, Other: May Bathe Notify Provider of: Fever, Increased Pain, Swelling and Redness, Drainage, Nausea and/or Vomiting - Discharge Plan *PRESCRIPTION DRUG MONITORING PROGRAM REVIEWED*: No *COPY OF PRESCRIPTION DRUG MONITORING REPORT IN PATIENT [place]: No Home Medications: Home Meds Pnv No.95/Ferrous Fum/Folic AC [ Vitamin Tablet] 1 tab PO DAILY 03/06/21 [History] Acetaminophen [Tylenol] 650 mg PO Q4H PRN tablet 03/08/21 [Rx] Docusate Sodium [Colace] 100 mg PO BID PRN cap 03/08/21 [Rx] Ibuprofen [Motrin] 600 mg PO Q6H PRN tablet 03/08/21 [Rx] Referrals: Darling Rangel MD [Primary Care Provider] - (3 weeks for check ) - Discharge Summary/Plan Comment DC Time >30 min.: No Total # of Minutes for Discharge Time: 15 - Patient Data Vitals - Most Recent: Last Vital Signs Temp 36.9 C 03/08/21 10:30 Pulse 81 03/08/21 10:30 Resp 15 03/08/21 10:30 BP 123/83 03/08/21 10:30 Pulse Ox 99 03/08/21 10:30 Weight - Most Recent: 109.452 kg I&O - Last 24 hours: Intake & Output 03/07/21 03/08/21 03/08/21 22:59 06:59 14:59 Intake Total 3500 Output Total 1300 1800 109 Balance -1300 -1800 3391 Med Orders - Current: Current Medications Acetaminophen (Acetaminophen 325 Mg Tab) 650 mg PO Q4H PRN PRN Reason: mild pain or fever Last Admin: 03/08/21 05:21 Dose: 650 mg Documented by: Benzocaine/Menthol (Benzocaine/Menthol 20%-0.5% [place] 78 Gm Cannister) 0 gm TOP ASDIRECTED PRN PRN Reason: Perineal Comfort Measure Docusate Sodium (Docusate Sodium 100 Mg Cap) 100 mg PO BID PRN PRN Reason: Constipation Last Admin: 03/08/21 10:50 Dose: 100 mg Documented by: Ibuprofen (Ibuprofen 600 Mg Tab) 600 mg PO Q6H PRN PRN Reason: Mild pain or fever Witch Caro (Witch Caro Medicated Pads 40/Jar) 1 pad TOP ASDIRECTED PRN PRN Reason: Perineal Comfort Measure Discontinued Medications Acetaminophen (Acetaminophen 325 Mg Tab) 650 mg PO Q4H PRN PRN Reason: Pain (Mild 1-3) and fever Last Admin: 03/07/21 20:10 Dose: 650 mg Documented by: Bupivacaine HCl (Bupivacaine 0.25% 10 Ml Sdv) 20 ml .ROUTE .[facility]-MED ONE Stop: 03/08/21 18:14 Diphenhydramine HCl (Diphenhydramine 50 Mg/Ml Sdv) 25 mg IVPUSH Q6H PRN PRN Reason: pruritis Ephedrine Sulfate (Ephedrine 50 Mg/Ml Sdv) 5 mg IVPUSH ASDIRECTED PRN PRN Reason: Hypotension Famotidine (Famotidine 20 Mg Tab) 20 mg PO Q12H PRN PRN Reason: Heartburn Last Admin: 03/07/21 15:11 Dose: 20 mg Documented by: Fentanyl (Fentanyl 100 Mcg/2 Ml Sdv) 100 mcg EPIDUR Q3H PRN PRN Reason: Pain Last Admin: 03/08/21 02:14 Dose: 100 mcg Documented by: Fentanyl/Bupivacaine HCl (Bupivacaine/Fentanyl/Ns 100 Ml Bag) 100 ml EPIDUR ASDIRECTED PRN PRN Reason: Pain Last Admin: 03/07/21 18:04 Dose: 100 ml Documented by: Oxytocin/Lactated Ringer's (Pitocin In Lr 10 Units/1,000 Ml) 10 unit in 1,000 mls @ 500 mls/hr IV .CONTINUOUS LUC Last Admin: 03/08/21 04:12 Dose: 500 mls/hr Documented by: Lactated Ringer's (Ringers, Lactated) 1,000 mls @ 100 mls/hr IV ASDIRECTED LUC Last Admin: 03/07/21 17:43 Dose: 100 mls/hr Documented by: Oxytocin/Lactated Ringer's (Pitocin In Lr 10 Units/1,000 Ml) 10 unit in 1,000 mls @ 12 mls/hr IV TITRATE LUC; Protocol Last Titration: 03/07/21 15:30 Dose: 20 munits/min, 120 mls/hr Documented by: Oxytocin 20 unit/ Lactated (Ringer's) 1,002 mls @ 6.012 mls/hr IV TITRATE LUC; Protocol Oxytocin/Lactated Ringer's (Pitocin In Lr 20 Units/1,000 Ml) 20 unit in 1,000 mls @ 60 mls/hr IV TITRATE LUC; Protocol Last Admin: 03/07/21 17:40 Dose: 60 mls/hr Documented by: Oxytocin/Lactated Ringer's (Pitocin In Lr 20 Units/1,000 Ml) 20 unit in 1,000 mls @ 60 mls/hr IV TITRATE LUC; Protocol Misoprostol (Misoprostol 25 Mcg (1/4 Of 100 Mcg) Tab) 25 mcg VAG Q4H PRN PRN Reason: cervical ripening Last Admin: 03/07/21 01:42 Dose: 25 mcg Documented by: Misoprostol (Misoprostol 25 Mcg (1/4 Of 100 Mcg) Tab) Confirm Administered Dose 25 mcg .ROUTE .[facility]-MED ONE Stop: 03/06/21 16:35 Last Admin: 03/06/21 16:39 Dose: Not Given Documented by: Nalbuphine HCl (Nalbuphine 10 Mg/1 Ml Vial) 10 mg IVPUSH Q2H PRN PRN Reason: Pain Ondansetron HCl (Ondansetron 4 Mg/2 Ml Sdv) 4 mg IVPUSH Q4H PRN PRN Reason: Nausea/Vomiting Last Admin: 03/07/21 08:21 Dose: 4 mg Documented by: Sodium Chloride (Sodium Chloride 0.9% 10 Ml Syringe) 10 ml FLUSH 0900,2100 LUC Last Admin: 03/07/21 21:46 Dose: Not Given Documented by: Sodium Chloride (Sodium Chloride 0.9% 10 Ml Syringe) 10 ml FLUSH ASDIRECTED PRN PRN Reason: Keep Vein Open
--- NOTE | 2021-03-08 13:59 | PCM.SN.2 ---
- Free Text/Narrative Note: 1358 Pt ready to go home. Numbness to right leg has worn off. Muscle strength equal bilaterally in legs. No complains of.
[2021-03-08] MEDS ORDERED: Bupivacaine 0.25% 10 ML SDV ONE (18:13)
== END 2021-03-08 14:30 | disposition home or self-care (01) | DRG 807 ==
LOC: JD.OBCHECK 15:33 → JD.OB 15:35 → JD.OBCHECK 16:32 → OBSVTOIN 03-08 03:16 → JD.OB 03-08 03:17
PROVIDERS: ADMIT Obstetrics & Gynecology; ATTEND Obstetrics & Gynecology
PROC: 10E0XZZ Delivery of Products of Conception, External Approach (ICD-10-PCS; principal; 2021-03-08)
PROC: 3E0P7VZ Introduction of Hormone into Female Reproductive, Via Natural or Artificial Opening (ICD-10-PCS; 2021-03-08)
PROC: 3E033VJ Introduction of Other Hormone into Peripheral Vein, Percutaneous Approach (ICD-10-PCS; 2021-03-08)
PROC: 0U7C7ZZ Dilation of Cervix, Via Natural or Artificial Opening (ICD-10-PCS; 2021-03-08)
PROC: 3E0R3BZ Introduction of Anesthetic Agent into Spinal Canal, Percutaneous Approach (ICD-10-PCS; 2021-03-08)
PROC: 10H07YZ Insertion of Other Device into Products of Conception, Via Natural or Artificial Opening (ICD-10-PCS; 2021-03-08)
DX: O60.14X0 Preterm labor third trimester with preterm delivery third trimester, not applicable or unspecified (principal); Z37.0 Single live birth; O36.5930 Maternal care for other known or suspected poor fetal growth, third trimester, not applicable or unspecified; Z3A.30 30 weeks gestation of pregnancy; O76 Abnormality in fetal heart rate and rhythm complicating labor and delivery; K44.9 Diaphragmatic hernia without obstruction or gangrene; O35.8XX0 Maternal care for other (suspected) fetal abnormality and damage, not applicable or unspecified; Z20.822 Contact with and (suspected) exposure to COVID-19
CPT/HCPCS: 36415; 51702; 59409; 85027; 86592; 86850; 86900; 86901; A9270-GY; C1726; J2405; J2590; J3010; J3490; J7120; U0002

== ENCOUNTER 2022-06-26 02:00 | Inpatient (IN) | payer OTHER ==
[~2022-06-26 02:00] MED LIST: Lidocaine 1% 10 ML MDV ONE
[2022-06-26] MEDS ORDERED: Nalbuphine 10 MG/0.5 ML Syringe IVPUSH PRN (03:07)
[2022-06-26] MEDS ORDERED: Ondansetron 4 MG/2 ML SDV IVPUSH PRN (03:07)
[2022-06-26] MEDS ORDERED: Ampicillin 2 GM in Sodium Chloride 0.9% 100 ML IV ONE (03:07)
[2022-06-26] MEDS ORDERED: Acetaminophen 325 MG Tab PO PRN (03:07)
[2022-06-26] MEDS ORDERED: Lidocaine 1% 50 ML MDV INJECT PRN (03:07)
[2022-06-26] MEDS ORDERED: Oxytocin/Lactated Ringers 10 UNIT/1,000 ML BAG IV SCH ×2 (03:15)
[2022-06-26] MEDS: Lactated Ringers 1,000 ML IV SCH ×3 (03:36→07:02)
[2022-06-26] MEDS ORDERED: Bupivacaine/fentaNYL/NS 100 ML Bag EPIDUR PRN (05:25)
[2022-06-26] MEDS ORDERED: fentaNYL 100 MCG/2 ML SDV EPIDUR PRN (05:25)
[2022-06-26] MEDS ORDERED: diphenhydrAMINE 50 MG/ML SDV IVPUSH PRN (05:25)
[2022-06-26] MEDS ORDERED: ePHEDrine 50 MG/ML SDV IVPUSH PRN (05:25)
[2022-06-26] MEDS: Ampicillin 1 GM in Sodium Chloride 0.9% 100 ML IV SCH ×2 (07:31→12:25)
[2022-06-26] MEDS ORDERED: Benzocaine/Menthol 20%-0.5% Spray 78 GM Cannister TOP PRN (15:52)
[2022-06-26] MEDS: Ibuprofen 600 MG Tab PO PRN ×2 (17:25→23:59)
[2022-06-26] MEDS: Witch Hazel Medicated Pads 40/Jar TOP PRN (17:26)
[2022-06-26] MEDS: Docusate Sodium 100 MG Cap PO PRN (20:29)
[2022-06-27] MEDS: Ampicillin 1 GM in Sodium Chloride 0.9% 100 ML IV SCH (00:24)
[2022-06-27] MEDS: Acetaminophen 325 MG Tab PO PRN ×3 (02:30→20:07)
[2022-06-27] MEDS: Witch Hazel Medicated Pads 40/Jar TOP PRN (07:38)
[2022-06-27] MEDS: Ibuprofen 600 MG Tab PO PRN (16:30)
[2022-06-28] MEDS: Ibuprofen 600 MG Tab PO PRN (00:13)
[2022-06-28] MEDS: Acetaminophen 325 MG Tab PO PRN (04:45)
[2022-06-28] MEDS: Docusate Sodium 100 MG Cap PO PRN (05:01)
== END 2022-06-28 13:48 | disposition home or self-care (01) | DRG 807 ==
LOC: JD.OBCHECK 02:00 → JD.OB 02:08 → JD.OBCHECK 03:07 → OBSVTOIN 14:48 → JD.OB 14:49
PROVIDERS: ADMIT Obstetrics & Gynecology; ATTEND Obstetrics & Gynecology
PROC: 0KQM0ZZ Repair Perineum Muscle, Open Approach (ICD-10-PCS; principal; 2022-06-26)
PROC: 10D07Z6 Extraction of Products of Conception, Vacuum, Via Natural or Artificial Opening (ICD-10-PCS; principal; 2022-06-26)
PROC: 00HU33Z Insertion of Infusion Device into Spinal Canal, Percutaneous Approach (ICD-10-PCS; principal; 2022-06-26)
PROC: 3E0R3BZ Introduction of Anesthetic Agent into Spinal Canal, Percutaneous Approach (ICD-10-PCS; principal; 2022-06-26)
DX: O42.02 Full-term premature rupture of membranes, onset of labor within 24 hours of rupture (principal); Z37.0 Single live birth; O99.824 Streptococcus B carrier state complicating childbirth; O70.1 Second degree perineal laceration during delivery; O99.214 Obesity complicating childbirth; O75.81 Maternal exhaustion complicating labor and delivery; Z3A.38 38 weeks gestation of pregnancy
CPT/HCPCS: 01967; 36415; 51701; 51702; 59025; 59409; 84112; 85027; 86592; 86850; 86900; 86901; A9270-GY; J0290; J2405; J2590; J3010; J3490; J7120

== ENCOUNTER 2024-05-05 06:54 | Inpatient (IN) | payer OTHER ==
[2024-05-05] MEDS ORDERED: Ondansetron 4 MG/2 ML SDV IVPUSH PRN (07:14)
[2024-05-05] MEDS ORDERED: Sodium Chloride 0.9% 10 ML Syringe FLUSH PRN (07:14)
[2024-05-05] MEDS ORDERED: Nalbuphine 10 MG/1 ML Vial IVPUSH PRN (07:14)
[2024-05-05] MEDS ORDERED: Lidocaine 1% 50 ML MDV INJECT PRN (07:14)
[2024-05-05] MEDS ORDERED: Oxytocin/0.9 % Sodium Chloride 30 UNIT/500 ML BAG IV SCH (07:15)
[2024-05-05] MEDS: Lactated Ringers 1,000 ML IV SCH (07:27)
[2024-05-05] MEDS: Oxytocin/0.9 % Sodium Chloride 30 UNIT/500 ML BAG IV SCH (07:28)
[2024-05-05 07:31] LABS: BASOPHILS PERCENT AUTO 0.1 % (0.0-1.0); EOSINOPHILS ABSOLUTE AUTO 0.1 K/mm3 (0.0-0.4); EOSINOPHILS PERCENT AUTO 0.9 % (0.0-6.0); HEMATOCRIT 35.3 % (37.0-47.0); HEMOGLOBIN 11.9 gm/dl (12.0-16.0); IMMATURE GRAN ABSOLUTE AUTO 0.06 K/mm3 (0.00-0.05); IMMATURE GRAN PERCENT AUTO 0.6 % (0.0-0.4); LYMPHOCYTES ABSOLUTE AUTO 2.3 K/mm3 (1.0-4.8); LYMPHOCYTES PERCENT AUTO 23.6 % (24.0-44.0); MEAN CORPUSCULAR HGB CONC 33.7 g/dl (32.0-36.0); MEAN CORPUSCULAR VOLUME 85.9 fl (83.0-99.0); MEAN PLATELET VOLUME 10.4 fl (9.4-12.3); MONOCYTES ABSOLUTE AUTO 0.6 K/mm3 (0.0-0.8); MONOCYTES PERCENT AUTO 6.6 % (0.0-8.0); NEUTROPHILS ABSOLUTE AUTO 6.7 K/mm3 (1.8-7.7); NEUTROPHILS PERCENT AUTO 68.2 % (41.0-71.0); PLATELET COUNT,PLT 164 K/mm3 (150-400); RED BLOOD CELL COUNT 4.11 M/mm3 (4.10-5.30); WHITE BLOOD CELL COUNT,WBC 9.77 K/mm3 (3.9-11.3)
[2024-05-05] MEDS ORDERED: Sodium Chloride 0.9% 10 ML Syringe FLUSH SCH (09:00)
[2024-05-05] MEDS ORDERED: ePHEDrine 50 MG/ML SDV IVPUSH PRN (09:33)
[2024-05-05] MEDS ORDERED: diphenhydrAMINE 50 MG/ML SDV IVPUSH PRN (09:33)
[2024-05-05] MEDS: Bupivacaine/fentaNYL/NS 100 ML Bag EPIDUR PRN (12:56)
[2024-05-05] MEDS ORDERED: Witch Hazel Medicated Pads 40/Jar TOP PRN (19:58)
[2024-05-05] MEDS ORDERED: Benzocaine/Menthol 20%-0.5% Spray 78 GM Cannister TOP PRN (19:58)
[2024-05-05] MEDS: Ibuprofen 600 MG Tab PO SCH (21:25)
[2024-05-06] MEDS: Docusate Sodium 100 MG Cap PO PRN (02:39)
[2024-05-06] MEDS: Acetaminophen 325 MG Tab PO PRN (04:47)
[2024-05-06] MEDS: Ibuprofen 600 MG Tab PO SCH (21:58)
== END 2024-05-07 14:55 | disposition home or self-care (01) | DRG 807 ==
LOC: JD.OB 06:54 → OBSVTOIN 18:43
PROVIDERS: ADMIT Obstetrics & Gynecology; ATTEND Obstetrics & Gynecology
PROC: 10E0XZZ Delivery of Products of Conception, External Approach (ICD-10-PCS; principal; 2024-05-05)
PROC: 0KQM0ZZ Repair Perineum Muscle, Open Approach (ICD-10-PCS; 2024-05-05)
PROC: 10907ZC Drainage of Amniotic Fluid, Therapeutic from Products of Conception, Via Natural or Artificial Opening (ICD-10-PCS; 2024-05-05)
PROC: 3E033VJ Introduction of Other Hormone into Peripheral Vein, Percutaneous Approach (ICD-10-PCS; 2024-05-05)
PROC: 3E0R3BZ Introduction of Anesthetic Agent into Spinal Canal, Percutaneous Approach (ICD-10-PCS; 2024-05-05)
PROC: 00HU33Z Insertion of Infusion Device into Spinal Canal, Percutaneous Approach (ICD-10-PCS; 2024-05-05)
DX: O99.62 Diseases of the digestive system complicating childbirth (principal); Z37.0 Single live birth; K21.9 Gastro-esophageal reflux disease without esophagitis; O70.1 Second degree perineal laceration during delivery; O76 Abnormality in fetal heart rate and rhythm complicating labor and delivery; Z3A.39 39 weeks gestation of pregnancy; Z98.890 Other specified postprocedural states; Z90.89 Acquired absence of other organs
CPT/HCPCS: 36415; 51702; 59025; 59409; 85025; 86592; 86850; 86900; 86901; A9270-GY; J3490; J7120; J7999